=== PATIENT | male | born 1955 | race Caucasian/White ===

== ENCOUNTER → 2017-06-07 | Outpatient (CLI) | payer OTHER ==
--- NOTE | 2017-06-07 12:29 | RADRPT ---
PROCEDURE: XR Bilateral Hips. CLINICAL INDICATION: Bilateral hip pain. TECHNIQUE: Four views. Frontal and lateral right hip. Frontal and lateral left hip. COMPARISON: No prior studies are available for comparison. FINDINGS: There is no fracture or dislocation. The soft tissues are normal. There are degenerative changes of both hips with joint space narrowing, osteophytes, subarticular sc lerosis, and subarticular cysts. Left is worse than right. There is no lytic or blastic lesion. There is no radiopaque foreign body. IMPRESSION: 1. Moderate to severe degenerative changes of both hips with left worse than right. RPTAT: QQ .Yuri Mauricio MD, MD Date Time Electronically viewed and signed by .Yuri Mauricio MD, MD on 06/07/2017 12:29 .R/
--- NOTE | 2017-06-08 05:32 | HKNOTE ---
DATE OF SERVICE: 06/07/2017 The patient referred by a former patient of mine, Khanh Pascual. MAIN COMPLAINT: Pain in the left hip. HISTORY OF MAIN COMPLAINT: The patient is a 62-year-old male who complains of pain in his left hip which has been present for "a long time." He underwent surgery to his lumbar spine in March. A laminectomy was performed at 3 levels. He feels the operation was a success. He no longer sanchez s pain in his lower back. He now has pain over the lateral aspect of his left hip. He does not hav e any groin pain. Occasionally the pain radiates from the trochanter to just above the knee. He sanchez s no numbness or tingling in his legs (he did have some before his spine surgery). His pain is aggravated by walking, weightbearing and stair climbing. He does get rest pain and nigh t pain. He takes Advil PM for the pain. He also has tramadol which he takes a few times a day. On a level surface he cannot walk more than a half a block without stopping. He gets pain with every step that he takes. He does get rest pain and night pain. He limps all the time. His left leg fee ls longer than the right leg. He has a shoe lift. He cannot clip his toenails and he has a great d eal of difficulty putting on his shoes and socks. SPORTING ACTIVITIES: None. PAST ORTHOPEDIC HISTORY: Surgery to the lumbar spine March 2016. Dr. Vargas, [place]. PRIOR CORTISONE INTAKE: None. ALCOHOL INTAKE: Two glasses of wine daily. OTHER JOINT PROBLEMS: None. PRIOR BLOOD TESTS FOR ARTHRITIS: None. PRIOR INJURIES TO HIPS OR KNEES: None. 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 PAST MEDICAL HISTORY: Hypertension. PAST SURGICAL HISTORY: 1. Surgery to the lumbar spine in March of 2016. 2. Ankle surgery (no date, no description). DRUG ALLERGIES: NONE. MEDICATIONS: Tramadol for pain. No others listed, but patient has hypertension. FAMILY HISTORY: Noncontributory. SYSTEMS REVIEW: Hypertension, otherwise entirely negative. HABITS: Patient does not smoke. He drinks 2 glasses of wine daily. ASSOCIATE PROFESSOR OF MEDIA ARTS: Dr. Correa, [address] [place] [address]. PHYSICAL EXAMINATION GENERAL: The patient is a fit-looking overweight 62-year-old male. He comes in with his . VITAL SIGNS: Height 6 feet 2 inches, weight 250 pounds. Blood pressure 140/85, temperature 98.6. GAIT: Patient walks without a walking aid today. He usually uses a cane to get around. His gait i s markedly antalgic. HIPS: Left hip: Flexion is 85 degrees, external rotation 25 degrees, internal rotation -5 degrees, abduction 25 degrees, adduction 0 degrees. Marked pain over the left greater trochanter at the baker its of motion. Examination of the right hip: Flexion 100 degrees, external rotation 20 degrees, in ternal rotation 0 degrees, abduction 30 degrees, adduction 20 degrees. No pain. LEFT KNEE: The left knee shows normal alignment. Active and passive extension is 0 degrees. Active and passive flexion is 135 degrees. The medial and lateral collateral ligaments and cruciate ligamen ts are intact. Rene test is negative. There is no effusion, tenderness, scarring, crepitus, or cy sts. The patella tracks normally. There is no tenderness on the articular surface of the patella or in the patellar groove. The Q angle is normal. RIGHT KNEE: The right knee shows normal alignment. Active and passive extension is 0 degrees. Activ e and passive flexion is 135 degrees. The medial and lateral collateral ligaments and cruciate ligam ents are intact. Rene test is negative. There is no effusion, tenderness, scarring, crepitus, or cysts. The patella tracks normally. There is no tenderness on the articular surface of the patella o r in the patellar groove. The Q angle is normal. IMAGING: Plain x-rays of his pelvis and lateral views of each hip were obtained today at the [facility]. These were reviewed. These show almost identical findings of complete los s of the articular joint space, oxxr-md-ijln contact, osteophyte formation, intraosseous cyst format ion, subchondral sclerosis. X-rays of his pelvis and hips obtained in February 2017 show changes of degenerative osteoarthritis of a moderate degree in both hips. DISCUSSION: A 62-year-old male who has extremely severe degenerative osteoarthritis of both hips. It is remarkable that he has not sought treatment before now. Remarkably has no pain at all in his right hip. The left hip pain is atypical in that it is located over the greater trochanter (without any tenderness over the trochanter). He has no groin pain. DIAGNOSES: 1. Exceedingly severe degenerative osteoarthritis of both hips, more symptomatic on the left. 2. Hypertension. 3. Status post surgery to the lumbar spine. Because his left hip pain presents atypically with pain only over the greater trochanter, he was giv en an injection of 10 mL of 2% lidocaine into the left hip joint. This completely eliminated his pa in even on the most strenuous forced internal and external rotation and flexion, confirming that his pain originates in the hip. The patient advised that he will definitely need to have bilateral hip replacements starting with th e left hip (the most symptomatic). The surgery and some of the major possible complications were discussed with the patient and his wif e. They were shown actual implants. The patient was given my manual titled "Arthritis of the Hip Joint" which contains information sean rning the various alternatives of treatment. It includes various forms of conservative treatment, in cluding the use of nonsteroidal anti-inflammatory medications and their dangers. Various surgical al ternatives are discussed. The technique of total hip replacement is discussed in detail, including p ossible complications. Included also is a section on the possible complications of blood transfusion , a section on postoperative precautions, and an exercise program to follow at home after total hip replacement. The long-term care of a total hip replacement implant is also covered in detail. The pa aníbal was instructed to read this manual in its entirety since it is, in and of itself, a form of in formed consent. After reading this manual, the patient will make a list of further questions that ma y not have been covered adequately. The patient was further advised that this manual, although exhau stive in nature, is only intended to supplement and complement a one-on-one discussion with me. They were referred to my website, [email or web address]. FINAL DIAGNOSES: 1. Exceedingly severe degenerative osteoarthritis of both hips, more symptomatic on the left. 2. Hypertension. 3. Status post surgery to the lumbar spine. The patient will call when he is ready to proceed with his surgery. Dictated By: MADONNA MARY/SARA Conf#: [id number] DID#: [id number] CC: Omero Correa MD;*EndCC*
== END | disposition home or self-care (01) ==
LOC: HKI 08:28
DX: M16.12 Unilateral primary osteoarthritis, left hip (principal); I10 Essential (primary) hypertension
CPT/HCPCS: 20610; 73522; G0463

== ENCOUNTER → 2017-10-05 | Outpatient (CLI) | END | disposition home or self-care (01) ==

== ENCOUNTER → 2017-11-05 | Outpatient (CLI) | END | disposition home or self-care (01) ==

== ENCOUNTER 2017-11-15 08:22 | Inpatient (IN) | END 2017-11-17 12:15 | disposition home health service (06) | DRG 470 ==

== ENCOUNTER → 2017-11-26 | Outpatient (CLI) | END | disposition home or self-care (01) ==

== ENCOUNTER → 2017-12-24 | Outpatient (CLI) | END | disposition home or self-care (01) ==

== ENCOUNTER → 2018-02-04 | Outpatient (CLI) | END | disposition home or self-care (01) ==